=== PATIENT | male | born 1950 | race Caucasian/White ===

== ENCOUNTER 2020-04-04 07:51 | Outpatient (CLI) | payer MEDICARE, SELFPAY ==
--- NOTE | 2020-04-04 08:00 | USCV_ITS ---
Tyson Contreras Age: 70 Gender: M : 1950 Exam Date: 04/04/2020 07:52 Ordering Phys: Brianna Lima MD ([email or web address]) Technologist: Tessa Alexander Exam [place] [facility] [place]: BRADYCARDIA/ ATYPICAL CHEST/SOB BP: 104 / 70 HR: 53 Rhythm: Sinus Technical Quality: Fair MEASUREMENTS (Male / Female) Normal Values 2D ECHO LV Diastolic Diameter PLAX 4.1 cm 4.2 - 5.9 / 3.9 - 5.3 cm LV Systolic Diameter PLAX 2.5 cm LV Chamber Size 3.0 cm IVS Diastolic Thickness 1.0 cm 0.6 - 1.0 / 0.6 - 0.9 cm IVS Systolic Thickness 1.6 cm LVPW Diastolic Thickness 1.4 cm 0.6 - 1.0 / 0.6 - 0.9 cm LVPW Systolic Thickness 1.6 cm RV Chamber Size 3.4 cm LVOT Diameter 2.0 cm LV Ejection Fraction 2D Teich 69.9 % LV Ejection Fraction MOD 2C 66.9 % LV Ejection Fraction 2C AL 68.0 % LA Diameter 3.4 cm LA Width 2.4 cm LA Height 4.0 cm RA Width 2.7 cm RA Height 3.9 cm Aorta at Sinotubular Diameter 3.1 cm M-MODE LV Diastolic Diameter MM 3.7 cm 4.2 - 5.9 / 3.9 - 5.3 cm LV Systolic Diameter MM 2.6 cm LV Ejection Fraction MM Teich 58.6 % IVS Diastolic Thickness MM 0.9 cm 0.6 - 1.0 / 0.6 - 0.9 cm IVS Systolic Thickness MM 1.1 cm LVPW Diastolic Thickness MM 0.7 cm 0.6 - 1.0 / 0.6 - 0.9 cm LVPW Systolic Thickness MM 1.1 cm Aortic Annulus Diameter 2.9 cm LA Ao Ratio MM 1.4 MV E Point Septal Separation 0.3 cm DOPPLER AV Peak Velocity 160.0 cm/s LVOT Peak Velocity 124.0 cm/s AV Area Cont Eq vti 2.4 cm squared AV Area Cont Eq pk 2.4 cm squared MV Area PHT 3.7 cm squared Mitral E to A Ratio 0.9 MV E' Velocity 39.5 cm/s Mitral E to MV E' Ratio 3.7 Mitral E to LV E' Lateral Ratio 3.5 Mitral E to LV E' Septal Ratio 4.1 TR Peak Velocity 212.9 cm/s TR Peak Gradient 18.1 mmHg TR Mean Velocity 189.5 cm/s TR Mean Gradient 17.0 mmHg TR Velocity Time Integral 86.1 cm TV Peak E Velocity 54.0 cm/s Right Atrial Pressure 3.0 mmHg Pulmonary Artery Systolic Pressu 21.1 mmHg PV Peak Velocity 85.0 cm/s RV Acceleration Time 0.1 s RV Ejection Time 0.4 s RV AcT/ET 0.4 FINDINGS Left Ventricle Normal left ventricular cavity size. Normal left ventricular systolic function. No regional wall motion abnormalities. Left ventricular ejection fraction is estimated at 65 %. Grade I/IV diastolic dysfunction (abnormal relaxation filling pattern), normal to mildly elevated filling pressures. Right Ventricle The right ventricle is normal in size and function. Right Atrium The right atrium is normal in size. Left Atrium The left atrium is normal in size. Mitral Valve Mildly thickened mitral valve. No mitral valve stenosis. Mild mitral valve regurgitation. Aortic Valve Mild aortic valve calcification. No aortic valve stenosis. Trace aortic valve regurgitation. Tricuspid Valve Structurally normal tricuspid valve without significant stenosis or regurgitation. Pulmonary artery systolic pressure is normal. Pulmonic Valve Structurally normal pulmonic valve without significant stenosis. There is no pulmonic regurgitation. Pericardium Normal pericardium without effusion. Aorta Normal ascending aorta dimension. CONCLUSIONS 1-Normal left ventricular cavity size. Normal left ventricular systolic function. No regional wall motion abnormalities. Left ventricular ejection fraction is estimated at 65 %. Grade I/IV diastolic dysfunction (abnormal relaxation filling pattern), normal to mildly elevated filling pressures. 2-Mild aortic valve calcification. No aortic valve stenosis. Trace aortic valve regurgitation. 3-Mildly thickened mitral valve. No mitral valve stenosis. Mild mitral valve regurgitation. 4-There is no pericardial effusion. 5-Pulmonary artery systolic pressure is within normal limits. 6-Right atrial pressure is around 5 mm of mercury. 7-There are no prior echocardiogram studies to compare. Carol Anguiano MD (Electronically Signed) Final Date: 05 April 2020 19:06 S
== END 2020-04-04 07:52 | disposition home or self-care (01) ==
LOC: US 07:54
PROVIDERS: PCP Family Medicine; Visit Provider Internal Medicine Cardiovascular Disease
DX: R06.02 Shortness of breath (principal); R00.1 Bradycardia, unspecified; R07.89 Other chest pain
CPT/HCPCS: 93306

== ENCOUNTER → 2023-02-14 08:21 | Outpatient (BNVA) | payer MEDICARE, SELFPAY | PROVIDERS: PCP Family Medicine; Referring Provider Registered Nurse; Visit Provider Surgery | DX: Z12.11 Encounter for screening for malignant neoplasm of colon (principal); Z86.010 Personal history of colon polyps | CPT/HCPCS: 99024; 99203 ==

== ENCOUNTER 2023-03-08 07:35 | Day surgery (SDC) | payer MEDICARE, SELFPAY ==
[2023-03-06 11:44] VITALS: BMI 25.8
[2023-03-08 07:51] VITALS: BP 114/78; PULSE 75; RESP 18; TEMP 36.5; O2SAT 97
[2023-03-08] MEDS: sodium chloride 0.9% 1,000 ML 30 ML IV (08:04)
--- NOTE | 2023-03-08 08:34 | ANES.PREANE2 ---
Pre-Anesthetic Assessment Height/Weight: Height 1.7 m Weight 74.843 kg Temp Pulse Resp BP Pulse Ox O2 Del Method 97.7 F 75 18 114/78 97 Room Air 03/08/23 07:51 03/08/23 07:51 03/08/23 07:51 03/08/23 07:51 03/08/23 07:51 03/08/23 07:51 Operation Date: 03/08/23 08:30 Proposed Procedures p Colonoscopy 46378,Z12.11,Z86.010(Not Applicable) - Ishmael Mitchell DO Familial anesthetic complications: none Was Beta Mallorie taken within 24 hours: N/A Was Clonidine taken within 24 hours: N/A Last intake: Intake Last Liquid Date 03/07/23 Last Liquid Time 19:00 Last Solid Date 03/06/23 Last Solid Time 18:00 Social No alcohol and No tobacco Exam alert and oriented x 3 Airway Submandibular: within normal limits Cervical ROM: within normal limits Mallampati: Class II Dentition: false Pulmonary None reported CV/HEM None reported None reported Hepatic None reported GI Gastroesophageal Reflux Disease Metabolic Hyperlipidemia [facility] [place] None reported Neuropsych None reported Anesthetic Plan ASA status: 2 Anesthesia: Anesthesia Evaluation, General and MAC Medications/Allergies Home Medications Medication Instructions Recorded Confirmed Last Taken Type citalopram 20 mg tablet (Celexa) 20 mg PO DAILY 02/17/20 03/06/23 03/06/23 History lovastatin 20 mg tablet 20 mg PO DAILY 02/17/20 03/06/23 03/06/23 History triamcinolone acetonide 0.1 % 1 applic topical DAILY 02/17/20 03/06/23 03/05/23 History topical cream lisinopril 5 mg tablet 5 mg PO DAILY 30 days #30 tabs 08/29/20 03/06/23 03/06/23 Rx Allergies Allergy/AdvReac Type Severity Reaction Status Date / Time No Known Allergies Allergy Unverified 03/08/23 07:48 Current Medications Generic Name Dose Route Start Last Admin Trade Name Freq PRN Reason Stop Dose Admin Sodium Chloride 1,000 mls @ 30 mls/hr 03/08/23 07:45 03/08/23 08:04 Sodium Chloride 0.9% IV 03/09/23 07:44 30 mls/hr .Q24H ARIADNA Administration PFSH Anesthesia Medical History (Updated 02/14/23 @ 08:53 by Ishmael Mitchell DO) Aortic valve calcification Daytime somnolence ANTONIA (generalized anxiety disorder) Hyperlipidemia Plaque psoriasis SOB (shortness of breath) had stress test 2 years ago in [place] and was told to be OK Surgical History (Updated 02/14/23 @ 08:53 by Ishmael Mitchell DO) Hx of colonoscopy 12 years Family History Other CAD (coronary artery disease) Diabetes Hyperlipidemia Hypertension Pacemaker Stroke Denies family history of Clotting disorder Dementia Psychiatric illness Chronic kidney disease (CKD) Bleeding disorder Lung disease Cancer Social History Smoking and tobacco status: former smoker Alcohol intake: never Substance/Drug Use: never Data Anesthesia Cardiac Studies: Echocardiogram Ultrasound 04/04/20
--- NOTE | 2023-03-08 09:00 | W.PM.OPSUD ---
Surgery/Procedure H&P Update DATE OF PROCEDURE: March 08, 2023 DATE H&P PERFORMED: 02/14/23 H&P UPDATE INFORMATION: I have reviewed H&P completed within last 30 days, I have examined patient prior to procedure and No changes to prior documentation PLANNED PROCEDURE: Operation Date: 03/08/23 08:30 Proposed Procedures p Colonoscopy 33009,Z12.11,Z86.010(Not Applicable) - Ishmael Mitchell, DO
[2023-03-08 09:15] VITALS: BP 114/74; PULSE 61; RESP 18; TEMP 36.1; O2SAT 97
[2023-03-08 09:26] VITALS: BP 125/74; PULSE 60; RESP 16; O2SAT 95
--- NOTE | 2023-03-08 09:34 | ANE.PACU2 ---
Inpatient post-anesthesia follow up: Airway intact: Yes Vital signs: Temperature 97 F Pulse Rate 60 Respiratory Rate 16 Blood Pressure 125/74 Pulse Oximetry 95 Oxygen Delivery Me thod Room Air Oxygen Flow Rate Fraction of Inspir ed Oxygen Hydration adequate: Yes Nausea and vomiting: No Pain level: 1 Mental status: Baseline
== END 2023-03-08 09:45 | disposition home or self-care (01) ==
PROVIDERS: PCP Family Medicine; Visit Provider Surgery
PROC: 0DJD8ZZ Inspection of Lower Intestinal Tract, Via Natural or Artificial Opening Endoscopic (ICD-10-PCS; CPT 45378; principal; 2023-03-08 08:30)
DX: Z12.11 Encounter for screening for malignant neoplasm of colon (principal); Z86.010 Personal history of colon polyps; K63.5 Polyp of colon; K57.30 Diverticulosis of large intestine without perforation or abscess without bleeding; K21.9 Gastro-esophageal reflux disease without esophagitis; E78.5 Hyperlipidemia, unspecified; Z87.891 Personal history of nicotine dependence
CPT/HCPCS: 45385; 88305; J2704; J7030